=== PATIENT | male | born 1995 | race Two or more races ===

== ENCOUNTER 2024-03-22 16:13 | Emergency (ER) | payer OTHER ==
[~2024-03-22] VITALS: Ht 180.3 cm; Wt 152.4 kg
[2024-03-22 16:41] VITALS: BP 105/74; O2SAT 98
[2024-03-22] MEDS ORDERED: CANDESARTAN-HC1 EACH PO (16:41)
[2024-03-22] MEDS ORDERED: AMLODIPINE-OLM1 EAC2 PO (16:41)
[2024-03-22 18:23] LABS: PH,URINE 5.5 (5.0-8.0); URINE APPEARANCE Clear; URINE BILIRRUBIN Negative (NEGATIVE); URINE BLOOD Negative; URINE COLOR Yellow; URINE GLUCOSE Negative (NEGATIVE); URINE KETONE Negative (NEGATIVE); URINE LEUKOCYTE Negative; URINE NITRATE Negative; URINE PROTEIN Negative (NEGATIVE); URINE UROBILINOGEN 0.2 E.U./dl
[2024-03-22 18:29] LABS: URINE BACTERIA 2.4 uL (0.0-1933); URINE CAST 0.29 uL (0.0-1.40); URINE EPITHELIAL CELLS 0.6 uL (0.0-38.8); URINE RBC 0.7 uL (0.0-20.8); URINE WBC 0.7 uL (0.0-23.2)
[2024-03-22] MEDS ORDERED: KETO10TA2 PO (20:04)
== END 2024-03-22 20:37 | disposition home or self-care (01) ==
LOC: ER 16:15
PROVIDERS: General Practice
DX: N50.812 Left testicular pain (principal); N50.811 Right testicular pain; I10 Essential (primary) hypertension; I86.1 Scrotal varices